=== PATIENT | male | born 1985 | race Caucasian/White ===

== ENCOUNTER 2018-01-17 14:55 | Emergency (ER) | payer OTHER ==
[~2018-01-17] VITALS: Ht 180.3 cm; Wt 113.4 kg
[~2018-01-17 14:55] MED LIST: NOHOMEMEDICATIONS; ULTRAM 50MG TAB50 MG PO; ZANAFLEX4 MG PO; ZANTAC 150MG T150 MG PO; ZPAK PO
[2018-01-17] MEDS ORDERED: PRILOSEC OTC20 MG PO (15:02)
[2018-01-17] MEDS ORDERED: MOBIC7.5 MG PO (16:12)
[2018-01-17] MEDS ORDERED: NORCO 5-325 TA1 EACH PO (16:12)
[2018-01-17] MEDS ORDERED: CYCLOBENZAPRINE5 MG PO (16:12)
[2018-01-17 16:30] VITALS: BP 129/82
== END 2018-01-17 16:31 | disposition home or self-care (01) ==
LOC: ER 14:55
DX: M62.830 Muscle spasm of back (principal); F17.210 Nicotine dependence, cigarettes, uncomplicated; Z88.0 Allergy status to penicillin; Z90.49 Acquired absence of other specified parts of digestive tract; Z90.89 Acquired absence of other organs